=== PATIENT | male | born 1930 | race Caucasian/White ===

== ENCOUNTER 2019-09-22 16:38 | Inpatient (IN) | payer MEDICARE ==
[~2019-09-22] VITALS: Ht 175.3 cm; Wt 84.5 kg
[~2019-09-22 16:38] MED LIST: MULTIPLE VITAMI1 CAP PO
[2019-09-22 18:27] VITALS: BP 138/60; PULSE 67; TEMP 98.1
--- NOTE | 2019-09-22 18:30 | NUR ---
PT IN ROOM, BED IN LOW POSITION, CALL LIGHT AND PHONE WITHIN REACH, BED ALARM ON, FALL SOCKS ON, PT ALERTED TO NEED TO USE CALL LIGHT WHEN NEEDING TO USE THE RESTROOM. WATER AND URINAL BROUGHT IN TO PT. NO OTHER NEEDS AT THIS TIME. INITIAL PERFORMED.
--- NOTE | 2019-09-22 18:52 | NUR ---
RECIEVED REPORT FROM NILESH, NURSE PRACTITIONER AT [facility].
--- NOTE | 2019-09-22 20:00 | NUR ---
Received report from Radha. Seen patient awake in bed. Assesment done. Patient states he only takes multivitamins and no other maintenance medicines. He has some joint pains from his osteoarthritis and describes it as like tingling pain/numb. He refuses to take Tylenol for now as he said he tries to avoid taking too much medicine. INT on left forearm flushed and hooked with NS at 75ml/hr. Patient prefers urinal to be placed in between his legs as he states that he doesn't know when he will urinate.
[2019-09-22 20:16] VITALS: BP 132/50; PULSE 60; TEMP 97.2
[2019-09-22 20:58] LABS: MUCOUS Present /lpf; PH 5 (5-8); SQUAMOUS EPITHELIAL None Seen /hpf; URINE APPEARANCE Clear; URINE BACTERIA None Seen /hpf; URINE BILIRUBIN Negative (NEGATIVE); URINE BLOOD 1+ (NEGATIVE); URINE COLOR Yellow; URINE GLUCOSE Negative (NEGATIVE); URINE KETONE Negative (NEGATIVE); URINE LEUKOCYTE ESTERASE Negative (NEGATIVE); URINE NITRATE Negative (NEGATIVE); URINE PROTEIN(semi-quant) Negative (NEGATIVE); URINE RBC 0-2 /hpf; URINE UROBILINOGEN Negative (NEGATIVE)
--- NOTE | 2019-09-22 22:00 | NUR ---
Repositioned patient and boost him up in bed. Briefs changed and noted to have a trace of bowel movement and an at least 3mm in size of ulcer in his buttocks. Placed back the urinal in between his legs. He states he lives alone and his daughter lives nearby to assist him with meals and medicines.
[2019-09-22 22:46] LABS: COLLECTION METHOD CLEAN CATCH
[2019-09-23] VITALS: BP 140/47; PULSE 67; TEMP 99.3
[2019-09-23] MEDS ORDERED: MOBIC15 MG PO (00:57)
[2019-09-23] MEDS ORDERED: KLOR-CON SPRIN10 MEQ PO (01:03)
[2019-09-23] MEDS ORDERED: ZANAFLEX 4MG TAB4 MG PO (01:04)
[2019-09-23] MEDS ORDERED: DEMADEX 20MG20 M1 PO (01:04)
--- NOTE | 2019-09-23 01:07 | NUR ---
Patient cannot remember the medicines that he's taking. He knows that he takes multivitamins. Med rec updated based on the details in his chart from the other facility.
[2019-09-23 04:00] VITALS: BP 128/48; PULSE 59; TEMP 98.3
--- NOTE | 2019-09-23 06:31 | NUR ---
Patient had uneventful night. With complains of joint pain from his arthritis. Tylenol given last night. He has been urine and bowel incontinent occasionally. He can urinate in the urinal but this morning his briefs are alredy wet despite of using the urinal. Briefs changed. Patient repositioned. Will endorse to day shift nurse.
[2019-09-23 06:39] LABS: BASO % 0.1 % (0.0-2.0); EOS % 0.1 % (0-4.0); GRAN # 8.5 (1.4-6.5); GRAN % 78.8 % (42.2-75.2); LYMPH # 1.1 (1.2-3.4); LYMPH % 10.1 % (20.0-51.0); MEAN CELL VOLUME 93 fl (80.0-100.0); MEAN CORPUSCULAR HGB CONC 33 g/dl (33.0-37.0); MEAN PLATELET VOLUME 10.6 fl (7.4-10.4); MONO # 1.1 (0.1-0.6); MONO % 9.8 % (1.7-9.3); PLATELET COUNT 266 K/mm3 (130-400); RED BLOOD COUNT 2.99 M/mm3 (4.20-5.60); REDCELL DISTRIBUTION WIDTH-CV 16.5 % (11.5-14.5)
[2019-09-23 06:40] LABS: HEMATOCRIT 27.8 % (42.0-52.0); HEMOGLOBIN 9.1 g/dl (13.5-18.0); MEAN CORPUSCULAR HEMOGLOBIN 30 pg (27.0-31.0)
[2019-09-23 06:56] LABS: BILIRUBIN,TOTAL 0.7 mg/dL (0.0-1.0); CALCIUM 8.3 mg/dL (8.4-10.2); CREATININE, serum 0.95 (0.66-1.25); POTASSIUM 3.7 mmol/L (3.4-5.0)
[2019-09-23 07:13] VITALS: BP 129/45; PULSE 58; TEMP 98.6
[2019-09-23 07:17] LABS: TSH w REFLEX 2.43 uIU/mL (0.465-4.680)
--- NOTE | 2019-09-23 09:37 | NUR ---
PT IN BED. URINAL EMPTIED 100ML. PT REPORTED SPILLING THE URINAL IN BED. BEDDING CHANGED, GOWN CHANGED, BED BATH PERFORMED, PERICARE PERFORMED, BARRIER CREAM APPLIED, 3MM SORE NOTED ON L CHEEK, OPEN TO AIR. ASSESSMENT PERFORMED, NEW FLUID BAG HUNG, BREAKFAST SET UP FOR PT, FRESH ICE WATER PROVIDED. NO OTHER NEEDS AT THIS TIME. PT REPORTS PAIN WHEN MOVING DUE TO ARTHRITIS BUT NO PAIN AT REST. PT REPOSITIONED TO L SIDE.
--- NOTE | 2019-09-23 10:41 | NUR ---
The patient is a PUI and pending results for COVID. HOLLY attempted to contact the patient's room and personal phone to discuss discharge plan. HOLLY then contacted the other phone number on file for the patient and his daughter, Jessie, answered his home phone. HOLLY completed intake with Jessie. The patient lives alone in [place]. Jessie lives next door to him. Jessie reports that the patient was independent with ADLs prior to hospitalization and that he has a cane and walker. The patient's PCP is Dr. Michael Romeo and he receives his medications at [facility]. The patient does not have advanced directives in EMR, but Jessie reports that the patient does have them completed. She states that her and her sisters: Akanksha Reyes (ph#[phone]) and Amparo Navarrete (ph#[phone]) are the patient's DPOA-HC. HOLLY attempted to contact the [facility] to inquire if they have a copy of the documents on file. HOLLY left them a voicemail. Jessie reports that if the patient able to get around okay, then she would have no concerns with the patient returning back home. The patient is pending COVID results. Will request PT/OT to be orderd. SW to continue to follow.
[2019-09-23 11:11] VITALS: BP 127/44; PULSE 57; TEMP 97.8
--- NOTE | 2019-09-23 15:25 | NUR ---
PT DID NOT WANT TO TAKE ANTIBIOTIC UNTIL POC WAS DISCUSSED WITH DAUGHTER AND THE DAUGHTER APPROVED THE MEDICATION. PT WAS ADAMENT HE WAS NOT REFUSING IT, HE JUST WANTED HER TO KNOW WHY THE MEDICATION WAS BEING ADMINISTERED. I INFORMED DR. NGO THAT THE PT'S DAUGHTER WAS WANTING AN UPDATE ON POC BEFORE GUITAR MAKER HAND.
[2019-09-23 15:35] VITALS: BP 120/50; PULSE 60; TEMP 98.2
--- NOTE | 2019-09-23 17:26 | NUR ---
JESUS MOELLERMEDICAL INTERPRETER, CALLED [facility] AND COVID TESTS RESULTED NEGATIVE.
--- NOTE | 2019-09-23 18:23 | NUR ---
PT TRANSFERRED ROOMS, SETTLED, DINNER IN FRONT, PT BRIEF AND GOWN CHANGED. PT PLEASANT AND HAPPY ABOUT BEING COVID NEGATIVE. PT STOOD UP WITH 2 PEOPLE TO ATTEMPT TO AMBULATE TO BATHROOM TO DEFECATE. PT TOO WEAK TO TAKE MORE THAN 4 STEPS. TRANSFER TO AND FROM WHEELCHAIR TO BED WAS DIFFICULT EVEN WITH A 2 ASSIST. NO OTHER NEEDS AT THIS TIME. DENIES PAIN UNLESS MOVED THEN COMPLAINS OF JOINT PAIN.
[2019-09-23 21:04] VITALS: BP 146/40; PULSE 64; TEMP 98.7
[2019-09-24] VITALS (7 sets, daily range): BP systolic 116–149; BP diastolic 37–61; PULSE 58–89; TEMP 97.7–98.8
--- NOTE | 2019-09-24 02:45 | NUR ---
Patient has been resting in bed this shift. Patient has been able to use urinal, and has had some incontinence this shift. Patient has 3mm stage II on coccyx. Patient has not had complaints of pain or nasuea this shift.
[2019-09-24 07:04] LABS: BASO % 0.1 % (0.0-2.0); EOS % 0.1 % (0-4.0); GRAN # 7.8 (1.4-6.5); GRAN % 77.8 % (42.2-75.2); HEMATOCRIT 27.9 % (42.0-52.0); HEMOGLOBIN 9.1 g/dl (13.5-18.0); LYMPH # 1.1 (1.2-3.4); MEAN CELL VOLUME 93 fl (80.0-100.0); MEAN CORPUSCULAR HEMOGLOBIN 30 pg (27.0-31.0); MEAN CORPUSCULAR HGB CONC 33 g/dl (33.0-37.0); MEAN PLATELET VOLUME 10.6 fl (7.4-10.4); PLATELET COUNT 272 K/mm3 (130-400); REDCELL DISTRIBUTION WIDTH-CV 16.5 % (11.5-14.5)
[2019-09-24 07:14] LABS: CALCIUM 8.1 mg/dL (8.4-10.2); CREATININE, serum 0.83 (0.66-1.25); POTASSIUM 3.4 mmol/L (3.4-5.0)
--- NOTE | 2019-09-24 08:15 | NUR ---
PATIENT WAS RESTING IN BED WITH EYES CLOSED, DID WAKE FOR BREAKFAST TRAY. PATIENT WAS PROVIDED DAMIR CARE AND REPOSITIONED IN BED. MORNING MEDICATIONS ADMINISTERED AND TAKEN WITHOUT DIFFICULTY. CALL LIGHT AND PERSONAL ITEMS ARE WITHIN REACH.
--- NOTE | 2019-09-24 08:30 | NUR ---
Received report from JESUS Cronin. A/Ox4. Denies any pain or discomfort. Pt sitting up in bed eating dinner upon entry. Meds administered as ordered. INT to LFA intact, flushed, dressing CDI. Tele monitor in place, leads checked. Urinal at bedside. Pt incontinent of BB but able to occasionally use urinal. Call light within reach. Needs met at this time.
--- NOTE | 2019-09-24 14:55 | NUR ---
The patient's COVID results from [facility] came back negative. PT/OT are recommending post-acute rehab for the patient. SW met with the patient to discuss their recommendation. The patient reports that he needs to get stronger and would be agreeable to post-acute rehab. He chose [facility]. The patient did not have a second preference and requested that SW contact his daughter, Amparo. HOLLY contacted Amparo and updated her on the above information. Amparo is agreeable to rehab and states that she would prefer [facility] as the second preference. HOLLY contacted and requested the patient's COVID results from [facility]. HOLLY contacted and faxed a referral to both facilities. SW awaiting their screens and the patient's COVID results from [place].
--- NOTE | 2019-09-24 18:17 | NUR ---
PATIENT IS RESTING IN BED, JUST FINISHED SUPPER. DID ASSIST WITH URINAL PER HIS REQUST. SPOKE WITH DAUGHTER REGARDING POSSIBLE PLACEMENT FOR PATIENT. SHE REQUESTS THAT DPOA PAPERWORK BE SENT WITH PATIENT UPON DISCHARGE. NOTIFIED BARBER INSTRUCTOR AND NOTE WAS LEFT ON CHART.
[2019-09-25 03:18] VITALS: BP 129/60; PULSE 89; TEMP 97.8
--- NOTE | 2019-09-25 03:32 | NUR ---
Pt requesting pain medication for bilateral knee joint pain, prn tylenol 650mg administered as requested. Made pt comfortable in bed. Call light within reach.
--- NOTE | 2019-09-25 06:34 | NUR ---
Needs attended too throughout the night. PRN tylenol given for c/o bilateral knee joint pain. made pt comfortable in bed. meds administered. call light within reach.
--- NOTE | 2019-09-25 06:41 | NUR ---
Report given to JESUS Cronin.
[2019-09-25 07:24] VITALS: BP 130/50; PULSE 58; TEMP 97.8
[2019-09-25 11:08] VITALS: BP 144/53; PULSE 63; TEMP 97.2
--- NOTE | 2019-09-25 11:10 | NUR ---
PATIENT IS RESTING IN BED, WAS ASSISTED WITH TAKING MEDICATION AT BREAKFAST HE HAD TROUBLE GETTING THE MED CUP TO HIS MOUTH. HE STATES HE HAS SLIGHT PAIN IN HIS BACK WHILE HE IS STILL. HE DID HELP WITH REPOSITIONING IN BED.
[2019-09-25 16:01] VITALS: BP 131/53; PULSE 76; TEMP 98.4
--- NOTE | 2019-09-25 17:14 | NUR ---
HOLLY contacted and faxed updates to [facility] and [facility]. Both facilities report that they would need to get authorization from the patient's insurance. Kiesha, at [facility], reports that she has not heard from insurance yet. HOLLY received he patient's General DPOA. HOLLY contacted the patient's daughter, Amparo, to inform that is does not include DPOA-HC. Amparo reports that she would like to get a DPOA-HC completed for the patient while here. HOLLY then met with the patient and his daughter, Amparo, and granddaughter, Zulema, were on speaker phone. HOLLY discussed DPOA-HC. The patient reports that he would be interested in completing one and designated his daughter, Amparo, and Zulema as the alternate. HOLLY and Jacqueline BARRERA, witnessed the patient's signature. The patient was provided with the original and some copies. HOLLY placed the General DPOA and DPOA-HC in the patient's chart. HOLLY also emailed a copy of the DPOA-HC to Alyssa. HOLLY to continue to follow.
--- NOTE | 2019-09-25 18:23 | NUR ---
PATIENT IS SITTING UP IN BED EATING EVENING MEAL. NO NEEDS VERBALIZED
[2019-09-25 19:37] VITALS: BP 124/67; PULSE 78; TEMP 100.1
--- NOTE | 2019-09-25 20:48 | NUR ---
Received report from JESUS Cronin. A/Ox4. Denies any pain at this time. Meds administered as ordered. T100.2, prn tylenol adminsitered. Will monitor pt. Tele monitor in place. Cough drop given as requested by pt. INT to LFA intact, flushed, dressing CDI. Needs met. Call light within reach.
[2019-09-25 22:55] VITALS: BP 117/64; PULSE 64; TEMP 98
[2019-09-26 03:36] VITALS: BP 132/45; PULSE 58; TEMP 98.1
[2019-09-26 07:05] LABS: BASO % 0.1 % (0.0-2.0); EOS % 0.3 % (0-4.0); GRAN # 11.7 (1.4-6.5); GRAN % 82.3 % (42.2-75.2); LYMPH # 1.1 (1.2-3.4); LYMPH % 7.5 % (20.0-51.0); MEAN CELL VOLUME 93 fl (80.0-100.0); MEAN CORPUSCULAR HGB CONC 32 g/dl (33.0-37.0); MEAN PLATELET VOLUME 9.8 fl (7.4-10.4); MONO # 1.2 (0.1-0.6); MONO % 8.5 % (1.7-9.3); PLATELET COUNT 312 K/mm3 (130-400); RED BLOOD COUNT 3.29 M/mm3 (4.20-5.60); REDCELL DISTRIBUTION WIDTH-CV 16.6 % (11.5-14.5)
[2019-09-26 07:06] LABS: HEMATOCRIT 30.5 % (42.0-52.0); HEMOGLOBIN 9.8 g/dl (13.5-18.0); MEAN CORPUSCULAR HEMOGLOBIN 30 pg (27.0-31.0)
--- NOTE | 2019-09-26 07:10 | NUR ---
Report given to JESUS Saldana.
[2019-09-26 07:14] LABS: CALCIUM 8.5 mg/dL (8.4-10.2); CREATININE, serum 0.81 (0.66-1.25); POTASSIUM 3.6 mmol/L (3.4-5.0)
[2019-09-26 07:17] VITALS: BP 119/46; PULSE 66; TEMP 97.8
--- NOTE | 2019-09-26 10:32 | NUR ---
Susana, at [facility], reports that the patient's insurance is not in network with them. HOLLY contacted and updated Jesenia at [facility]. Jesenia reports that they are in network with the patient's insurance and will submit for auth today. HOLLY contacted and updated the patient's daughter, Amparo. Amparo is agreeable with the patient going to [facility]. SW awaiting auth and will continue to follow.
[2019-09-26 11:32] VITALS: BP 115/46; PULSE 63; TEMP 98.4
--- NOTE | 2019-09-26 12:01 | NUR ---
Patient is alert and oriented. complained of generalized pain and weakness of 4/10. gave tylenol for pain. patient mentioned he has dry cough, uses cough drop to relieve cough. patient have conjunctivitis on both eyes. LYNN Chong ordered for chest xray for SOA complain, increase wbc to 14.2 from 10.0.
[2019-09-26 18:02] VITALS: BP 109/48; PULSE 58; TEMP 98.3
--- NOTE | 2019-09-26 19:20 | NUR ---
Patient report poor appetite. Administered zofran once for nausea. report given to JESUS Forman.
[2019-09-26 19:22] VITALS: BP 127/50; PULSE 57; TEMP 98.4
--- NOTE | 2019-09-26 20:30 | NUR ---
Initial shift assessment done- did eat a few bites of supper tonight,,denies pain, states has a few aches in his joints but is ok for now- was incontinent of urine- will try to collect a urine specimen in urinal the next time- pt aware and will try to call when needs to go,, Tele on,
[2019-09-27] VITALS (7 sets, daily range): BP systolic 106–129; BP diastolic 43–55; PULSE 56–89; TEMP 97.9–100
--- NOTE | 2019-09-27 05:09 | NUR ---
Has been sleeping well tonight -especially when on his right side,, VSS, has been voiding small amounts per urinal and also incontinent, did have a temp of 100.0 during the night.
[2019-09-27 06:03] LABS: COLLECTION METHOD CLEAN CATCH
[2019-09-27 06:15] LABS: MUCOUS Present /lpf; PH 5 (5-8); SQUAMOUS EPITHELIAL 0-2 /hpf; URINE APPEARANCE Clear; URINE BACTERIA None Seen /hpf; URINE BILIRUBIN Negative (NEGATIVE); URINE BLOOD Negative (NEGATIVE); URINE COLOR Yellow; URINE GLUCOSE Negative (NEGATIVE); URINE KETONE Negative (NEGATIVE); URINE LEUKOCYTE ESTERASE Negative (NEGATIVE); URINE NITRATE Negative (NEGATIVE); URINE PROTEIN(semi-quant) Negative (NEGATIVE); URINE RBC 0-2 /hpf; URINE UROBILINOGEN Negative (NEGATIVE)
[2019-09-27 06:54] LABS: MEAN CELL VOLUME 94 fl (80.0-100.0); MEAN CORPUSCULAR HGB CONC 32 g/dl (33.0-37.0); MEAN PLATELET VOLUME 10.2 fl (7.4-10.4); PLATELET COUNT 335 K/mm3 (130-400); RED BLOOD COUNT 3.17 M/mm3 (4.20-5.60); REDCELL DISTRIBUTION WIDTH-CV 16.6 % (11.5-14.5)
[2019-09-27 07:15] LABS: HEMATOCRIT 29.7 % (42.0-52.0); HEMOGLOBIN 9.5 g/dl (13.5-18.0); MEAN CORPUSCULAR HEMOGLOBIN 30 pg (27.0-31.0)
[2019-09-27 07:17] LABS: CALCIUM 8.1 mg/dL (8.4-10.2); CREATININE, serum 0.95 (0.66-1.25); POTASSIUM 3.9 mmol/L (3.4-5.0)
--- NOTE | 2019-09-27 08:30 | NUR ---
Patient is alert and oriented. mentioned that the pain has reduced in comparison to yesterday. O2 sat at 89% on RA. Currently on 1L of O2 with O2 saturation of 95%. educate on deep breathing. patient is resting in bed right now.
[2019-09-27 10:38] LABS: BAND 6 % (0-10); EOSINOPHIL 1 % (0-4); LYMPHOCYTE 9 % (20.0-51.0); NEUTROPHILS 76 % (42.0-75.2)
[2019-09-27 10:39] LABS: PLATELET ESTIMATE NORMAL (NORMAL)
--- NOTE | 2019-09-27 20:30 | NUR ---
Initial shift assessment done- states having just some overall aches--will give tylenol before bed, VSS, Tele on, pleasant, talkative, oriented x4-- did use urinal with some assistnace-voided 200cc alvin urine- also small incontinence. o2 at 1L/nc.
[2019-09-28 04:00] VITALS: BP 118/38; PULSE 62; TEMP 98.1
--- NOTE | 2019-09-28 06:00 | NUR ---
Did not get much sleep during the night, pt did use the urinal numerous times during the night with assistance-- also was incontinent of small amount soft stool x2-
[2019-09-28 07:30] VITALS: BP 125/42; PULSE 59; TEMP 98.6
[2019-09-28 07:36] LABS: MEAN CELL VOLUME 95 fl (80.0-100.0); MEAN CORPUSCULAR HGB CONC 32 g/dl (33.0-37.0); MEAN PLATELET VOLUME 10.3 fl (7.4-10.4); PLATELET COUNT 329 K/mm3 (130-400); RED BLOOD COUNT 3.11 M/mm3 (4.20-5.60); REDCELL DISTRIBUTION WIDTH-CV 16.8 % (11.5-14.5)
[2019-09-28 07:42] LABS: CALCIUM 8.1 mg/dL (8.4-10.2); CREATININE, serum 0.84 (0.66-1.25); POTASSIUM 3.7 mmol/L (3.4-5.0)
[2019-09-28 07:48] LABS: HEMATOCRIT 29.6 % (42.0-52.0); HEMOGLOBIN 9.5 g/dl (13.5-18.0); MEAN CORPUSCULAR HEMOGLOBIN 31 pg (27.0-31.0)
[2019-09-28 09:21] LABS: BAND 12 % (0-10); LYMPHOCYTE 4 % (20.0-51.0); METAMYELOCYTE 1 % (0-0); NEUTROPHILS 78 % (42.0-75.2)
[2019-09-28 09:22] LABS: ANISOCYTOSIS 1+; PLATELET ESTIMATE NORMAL (NORMAL)
[2019-09-28 09:23] LABS: HYPOCHROMIA 2+
[2019-09-28 11:38] VITALS: BP 125/61; PULSE 72; TEMP 98.8
[2019-09-28 16:09] VITALS: BP 123/45; PULSE 65; TEMP 98.1
--- NOTE | 2019-09-28 18:25 | NUR ---
PATIENT REPOSITIONED IN BED FOR SUPPER, SET UP PROVIDED.
[2019-09-28 19:19] VITALS: BP 117/50; PULSE 93; TEMP 98.4
--- NOTE | 2019-09-28 20:17 | NUR ---
Pt resting in bed at this time watching television. Pt assessment completed and documented. Pt alert and orieted to person and place. Pt unable to state current month, however was able to state correct year. INT to left wrist CDI. Pt states he is having 3/10 generalized pain but states he does not want any pain medication at this time and is refusing to be repositioned. Pt refusing to eat dinner stating that he is not hungry. Pt denies any other needs at this time. Call light within reach. Fall precautions in place. Bed alarm on. Will continue to monitor.
[2019-09-28 23:20] VITALS: BP 124/70; PULSE 71; TEMP 99
--- NOTE | 2019-09-29 02:17 | NUR ---
Pt resting in bed awake at this time. States he has not been able to sleep much. Repositioned pt in bed. Pt denies any needs. Fall precautions in place. Bed alarm on. Will continue to monitor.
[2019-09-29 03:18] VITALS: BP 123/43; PULSE 70; TEMP 100.9
[2019-09-29 05:11] LABS: CLOSTRIDIUM DIFF A/B NEG; CLOSTRIDIUM DIFF A/B INTERP No C.diff present
--- NOTE | 2019-09-29 06:41 | NUR ---
Pt awake most of the night. Temp max 100.9. PRN tylenol given per orders. Pt incontinent of two liquid bowel movements overnight. INT to right wrist CDI. Complaints of generalized aching pain overnight that pt stated he did not want any pain medication for. Pt denies any other needs. Fall precautions in place. Bed alarm on. Call light within reach.
[2019-09-29 06:50] LABS: CREATININE, serum 0.93 (0.66-1.25); POTASSIUM 3.5 mmol/L (3.4-5.0)
[2019-09-29 07:11] LABS: MEAN CELL VOLUME 93 fl (80.0-100.0); MEAN CORPUSCULAR HGB CONC 32 g/dl (33.0-37.0); MEAN PLATELET VOLUME 10.2 fl (7.4-10.4); PLATELET COUNT 368 K/mm3 (130-400); RED BLOOD COUNT 3.19 M/mm3 (4.20-5.60); REDCELL DISTRIBUTION WIDTH-CV 16.8 % (11.5-14.5)
[2019-09-29 07:17] LABS: HEMATOCRIT 29.8 % (42.0-52.0); HEMOGLOBIN 9.6 g/dl (13.5-18.0); MEAN CORPUSCULAR HEMOGLOBIN 30 pg (27.0-31.0)
[2019-09-29 07:22] VITALS: BP 115/44; PULSE 57; TEMP 97.9
--- NOTE | 2019-09-29 07:27 | NUR ---
Report given to JESUS Albert
[2019-09-29 10:14] LABS: BAND 4 % (0-10); LYMPHOCYTE 8 % (20.0-51.0); NEUTROPHILS 78 % (42.0-75.2)
[2019-09-29 12:03] VITALS: BP 129/47; PULSE 62; TEMP 98.2
--- NOTE | 2019-09-29 14:09 | NUR ---
Refractory Specialist faxed updates to Susana with [facility] and to Jesenia with [facility]. SW contacted Susana and she reports that the patient's insurance had them back out their authorization due to the patient's condition and him not ready for post acute rehab.
[2019-09-29 15:40] VITALS: BP 131/50; PULSE 63; TEMP 97.9
--- NOTE | 2019-09-29 17:46 | NUR ---
Pt assessment completed and charted. medications administered per MAY. Pt is A&O. Pt states he has general pain all over, feeling weak and "going down hill since he got here". Pt on 3l NC. Denies SOB, breathing is even and unlabored. LWR INT flushes w/o complications. Pt started on zosyn, no issues. Incontinent care provided, bottom red, small ulcer, unopened, barrier cream applied. Pt had minimal participation in therapies today d/t weakness. Pt sleeping off and on throughout day, no further needs expressed. Call light within reach.
[2019-09-29 19:03] VITALS: BP 104/55; PULSE 72; TEMP 99.7
[2019-09-29 19:48] VITALS: BP 158/78; PULSE 64; TEMP 97.4
--- NOTE | 2019-09-29 20:30 | NUR ---
Pt assessment completed and documented. Pt resting in bed at this time watching television. Pt alert and oriented x4. Complaints of generalized pain "from his arthritis". Will give PRN tylenol per pt request. IV zosyn infusing per orders to left forearm IV site without complications. Pt on 3L O2 via nasal cannula. Pt denies any other needs at this time. Fall precautions in place. Bed alarm on. Call light within reach. Will continue to monitor.
[2019-09-30 00:37] VITALS: BP 111/54; PULSE 62; TEMP 98.3
[2019-09-30 03:51] VITALS: BP 105/63; PULSE 62; TEMP 98.9
--- NOTE | 2019-09-30 06:00 | NUR ---
Pt had uneventful shift. Pt awake on and off throughout the night. Complaints of generalized pain at the beginning of the night. PRN tylneol given per orders. INT to right wrist CDI. Pt denies any other needs. Bed alarm on. Call light within reach. Bed alarm on.
[2019-09-30 07:00] LABS: MEAN CELL VOLUME 94 fl (80.0-100.0); MEAN CORPUSCULAR HGB CONC 31 g/dl (33.0-37.0); MEAN PLATELET VOLUME 10.3 fl (7.4-10.4); PLATELET COUNT 337 K/mm3 (130-400); RED BLOOD COUNT 3.09 M/mm3 (4.20-5.60)
[2019-09-30 07:03] LABS: HEMOGLOBIN 9.1 g/dl (13.5-18.0); MEAN CORPUSCULAR HEMOGLOBIN 29 pg (27.0-31.0)
--- NOTE | 2019-09-30 07:13 | NUR ---
Report given to JESUS Bowens
[2019-09-30 07:23] LABS: CREATININE, serum 0.95 (0.66-1.25); POTASSIUM 3.8 mmol/L (3.4-5.0)
[2019-09-30 07:24] LABS: BAND 19 % (0-10); LYMPHOCYTE 7 % (20.0-51.0); METAMYELOCYTE 2 % (0-0); NEUTROPHILS 70 % (42.0-75.2); PLATELET ESTIMATE NORMAL (NORMAL)
[2019-09-30 07:36] VITALS: BP 120/61; PULSE 84; TEMP 98.4
--- NOTE | 2019-09-30 09:42 | NUR ---
Money Position Officer faxed updates to [facility] and [facility]. Will continue to monitor.
--- NOTE | 2019-09-30 10:52 | NUR ---
Retail Associate contacted the patient's daughter, Amparo ([phone]) to revisit the discharge plan. She would like a referrals to be sent to [facility]. HOLLY to fax referrals. HOLLY contacted Acosta about being in-network with [facility]. She states she would have to check the insurance. HOLLY contacted [facility] and he states they are in-network. HOLLY contacted Susana with [facility] and they are still working with [facility]. The patient may have to pay out of pocket since they are not in-network. HOLLY informed the patient's daughter of paying out of pocket information. She states the patient does not have a lot of extra money. She states she would prefer the patient stay in [place] or go to [facility] for post acute rehab. But was open to continue sending updates to [facility]. Will continue to monitor.
[2019-09-30 12:32] VITALS: BP 115/56; PULSE 87; TEMP 98.6
--- NOTE | 2019-09-30 16:23 | NUR ---
Acosta from [facility] contacted HOLLY. She states that the patient will have a 50% co-pay and that would be about $300-$400 per day, includes therapy. HOLLY contacted Amparo with an update and she would like to withdraw the referral from [facility]. HOLLY informed [facility]. HOLLY contacted Jatinder with [facility]. They can accept the patient clinically. However, they are awaiting [employer] authorization and there has to be a bed available. There has to be another Covid-19 test. HOLLY informed PA. Will continue to follow.
[2019-09-30 16:43] VITALS: BP 122/48; PULSE 93; TEMP 98.6
--- NOTE | 2019-09-30 19:00 | NUR ---
Pt assessment completed and charted. medications administered per may. Pt is A&O, occasionally drowsy, feeling "very weak". Denies pain unless he's moving around or during repostioning. Pt has RFA/RWR area INT IV, flushes w/o difficulty. Pt has edema noted to forearms. BLE 1+ edema. pt has difficulty rolling from side to side on own or sitting up. Attempted to stand w/ PT today 3 times, very difficult, 2 assist w/ gait belt and walker. Episodes of incontinence, linen change completed. RVP and GI panel came back negative. Pt off precautions. Pt on 3L NC. SOB noted with repositioning. Pt requested cough drops, provided PRN. pt refused afternoon eye drops. No other concerns expressed. Daughter Alyssa called, upset that she had not spoken with anyone or received updates. LYNN Chong aware and HOLLY aware, daughter contacted for updates and discharge discussion. No further needs.
[2019-09-30 19:50] VITALS: BP 113/46; PULSE 69; TEMP 99
--- NOTE | 2019-09-30 20:00 | NUR ---
Patient is awake in bed; He has been incontinent of urine in his brief and is cleaned up at this time. His bottom is reddened but blanchable; barrier cream applied. Patient is alert and oriented and complains of generalized pain, especially in joints, with movement. Hand brine plant operator are equal but weak. Heart sounds are normal/regular and lung sounds are clear over diminished. Right forearm IV is d/c'd at this time, as right arm appears puffy and no blood return is observed. Bilateral upper extremities appear edematous, the right side more so. Patient's right eye is slightly droopy and reddened. Verbal consent for bedside cystoscopy is obtained from patient and patient's daughter at this time.
[2019-10-01] VITALS (7 sets, daily range): BP systolic 110–123; BP diastolic 39–51; PULSE 64–81; TEMP 98–100.8
--- NOTE | 2019-10-01 06:07 | NUR ---
Patient has had adequate urine output over night. He has soaked his brief twice and urinated 150 ml in the urinal. A bladder scan was performed immediately after patient voided and states >450 ml remains in the bladder. He has ran some low grade fevers throughout the night with a TMAX of 100.8. He is currently afebrile.
[2019-10-01 07:35] LABS: MEAN CELL VOLUME 94 fl (80.0-100.0); MEAN CORPUSCULAR HGB CONC 32 g/dl (33.0-37.0); MEAN PLATELET VOLUME 9.9 fl (7.4-10.4); PLATELET COUNT 344 K/mm3 (130-400); RED BLOOD COUNT 2.75 M/mm3 (4.20-5.60)
[2019-10-01 07:57] LABS: ALBUMIN 2.6 gm/dL (3.5-5.0); BILIRUBIN,TOTAL 0.6 mg/dL (0.0-1.0); CALCIUM 7.8 mg/dL (8.4-10.2); CREATININE, serum 0.96 (0.66-1.25); MAGNESIUM 2.2 mg/dL (1.6-2.3); POTASSIUM 3.7 mmol/L (3.4-5.0); TOTAL PROTEIN 6.4 gm/dL (6.4-8.2)
[2019-10-01 08:07] LABS: HEMATOCRIT 25.8 % (42.0-52.0); HEMOGLOBIN 8.2 g/dl (13.5-18.0); MEAN CORPUSCULAR HEMOGLOBIN 30 pg (27.0-31.0)
[2019-10-01 09:02] LABS: BAND 12 % (0-10); EOSINOPHIL 2 % (0-4); LYMPHOCYTE 6 % (20.0-51.0); METAMYELOCYTE 2 % (0-0); NEUTROPHILS 74 % (42.0-75.2); PLATELET ESTIMATE NORMAL (NORMAL)
--- NOTE | 2019-10-01 09:12 | NUR ---
Spinneret Person attended clinical rounds with the team. Neurology was consulted. A CT of the abdomen/pelvis ordered. SW to fax updates to [facility], [facility] and [facility]. Will continue to monitor.
--- NOTE | 2019-10-01 13:28 | NUR ---
Pipe Joints Supervisor contacted Susana with [facility] regarding placement and they cannot take the patient. SW contacted Jesenia with [facility] and she states they can tentatively take the patient as long as the patient is stable to discharge. HOLLY contacted Jatinder with [facility] reports they can revisit the patient acceptance for next week if a discharge date is set by Sunday. Right now they do not have male beds. SW contacted the patient's daughter, Amparo to provide an update. Will continue to monitor.
--- NOTE | 2019-10-01 19:05 | NUR ---
PATIENT NOTFIED STAFF HE HAD TO USE THE RESTROOM, WAS ASSISTED WITH URINAL. CALL LIGHT IS WITHIN REACH. REPORT GIVEN TO ONCOMING SHIFT.
--- NOTE | 2019-10-01 21:15 | NUR ---
Pt assessment completed and documented. Pt resting in bed at this time watching television. Pt alert and oriented x4. Complaints of generalized pain however states he does not want anything for pain at this time. INT to right wrist CDI. Pt denies any other needs at this time. Fall precautions in place. Bed alarm on. Call light within reach. Will continue to monitor.
[2019-10-02] VITALS (15 sets, daily range): BP systolic 104–127; BP diastolic 39–55; PULSE 62–72; TEMP 97.7–99.3
--- NOTE | 2019-10-02 00:51 | NUR ---
Pt reported poor appetite earlier in the night but requested something to eat around 0000. Pt given ice cream, 1/2 cookie and applesauce per request and threw up immediately after eating. PRN zofran given per orders. Pt not experiencing any vomiting at this time and states nausea has almost resolved. Will continue to monitor.
--- NOTE | 2019-10-02 05:42 | NUR ---
Pt rested intermittently throughout the night. Pt attempted to eat a snack around midnight and threw up everything that he ate right after eating. PRN zofran given x1 per orders. No complaints of nausea at this time. Pt had small amount of liquid bm overnight that was clear in color with a small amount of brown that appeared mucousy-large amount of gas at time of BM. Complaints of generalized pain overnight. PRN tylenol given x1 per orders. INT to left wrist CDI. Telemetry on. Call light within reach. Bed alarm on. Will continue to monitor.
--- NOTE | 2019-10-02 07:38 | NUR ---
RADIOLOGY CALLED REGARDING BIOPSY ORDER @ 0701. SPOKE TO DR CHAMBERLAIN. RECOMMENDED TO HAVE DOC PUT IN BIOPSY ORDER DIRECTLY. DR WALKER'S OFFICE CLOSED UNITL 0900. WILL ATTEMPT TO CALL AT LATER TIME.
--- NOTE | 2019-10-02 11:25 | NUR ---
PT AOX4. REPORTS WEAKNESS, UNABLE TO LIFT ELBOWS OFF BED. ATE BREAKFAST THIS AM. CURRENTLY DENIES NAUSEA. REPORTS SARABJIT KNEE PAIN. TYLENOL OFFERED. VANCO RUNNING AFTER LATE TROUGH
--- NOTE | 2019-10-02 11:28 | NUR ---
Marquetry Worker attended clinical rounds with the team. A PICC line may be place this day. SW to fax updates to [facility] and [facility]. Will continue to follow.
[2019-10-02 17:03] LABS: MEAN CELL VOLUME 96 fl (80.0-100.0); MEAN CORPUSCULAR HGB CONC 32 g/dl (33.0-37.0); PLATELET COUNT 397 K/mm3 (130-400); RED BLOOD COUNT 2.06 M/mm3 (4.20-5.60); REDCELL DISTRIBUTION WIDTH-CV 16.9 % (11.5-14.5)
[2019-10-02 17:05] LABS: HEMATOCRIT 19.7 % (42.0-52.0); MEAN CORPUSCULAR HEMOGLOBIN 30 pg (27.0-31.0)
[2019-10-02 17:06] LABS: HEMOGLOBIN 6.2 g/dl (13.5-18.0)
[2019-10-02 17:12] LABS: CALCIUM 7.9 mg/dL (8.4-10.2); CREATININE, serum 1.04 (0.66-1.25); MAGNESIUM 2.4 mg/dL (1.6-2.3); POTASSIUM 3.1 mmol/L (3.4-5.0)
[2019-10-02 18:01] LABS: BAND 13 % (0-10); LYMPHOCYTE 4 % (20.0-51.0); NEUTROPHILS 78 % (42.0-75.2)
[2019-10-02 18:02] LABS: ANISOCYTOSIS 1+; HYPOCHROMIA 1+
[2019-10-02 18:03] LABS: PLATELET ESTIMATE NORMAL (NORMAL)
--- NOTE | 2019-10-02 19:55 | NUR ---
1 unit PRBC started at this time. Patient educated on adverse side effects. This RN remains in room with patient for 15 minutes, monitoring vital signs. Will continue to monitor.
--- NOTE | 2019-10-02 20:00 | NUR ---
At time of assessment, patient is alert and oriented and appears weak. Hand die cast technician are equal but weak. Heart sounds are normal/regular and lungs are clear with diminished bases. Dependent edema that is nonpitting is present in lower extremities and arms appear slightly edematous as well. Patient complains of mild pain and requests to take tylenol later. Right eye is slightly redened and droopy. Will continue to monitor.
--- NOTE | 2019-10-02 22:45 | NUR ---
Blood transfusion finished at this time. Patient tolerated well. Will continue to monitor.
[2019-10-03] VITALS (7 sets, daily range): BP systolic 107–126; BP diastolic 39–59; PULSE 53–85; TEMP 97.5–100.1
--- NOTE | 2019-10-03 05:31 | NUR ---
Patient has been febrile tonight with a TMAX of 100.8 axillary. He remains on 02 at 2-3 liters nasal cannula and is still very weak.
[2019-10-03 07:50] LABS: MEAN CELL VOLUME 94 fl (80.0-100.0); MEAN CORPUSCULAR HGB CONC 31 g/dl (33.0-37.0); MEAN PLATELET VOLUME 10.1 fl (7.4-10.4); PLATELET COUNT 315 K/mm3 (130-400); RED BLOOD COUNT 3.18 M/mm3 (4.20-5.60); REDCELL DISTRIBUTION WIDTH-CV 17.2 % (11.5-14.5)
[2019-10-03 07:59] LABS: CALCIUM 7.9 mg/dL (8.4-10.2); CREATININE, serum 1.07 (0.66-1.25); HEMATOCRIT 29.8 % (42.0-52.0); MEAN CORPUSCULAR HEMOGLOBIN 29 pg (27.0-31.0); POTASSIUM 3.3 mmol/L (3.4-5.0)
[2019-10-03 08:01] LABS: HEMOGLOBIN 9.3 g/dl (13.5-18.0)
[2019-10-03 09:03] LABS: BAND 16 % (0-10); EOSINOPHIL 1 % (0-4); NEUTROPHILS 60 % (42.0-75.2)
[2019-10-03 09:04] LABS: LYMPHOCYTE 13 % (20.0-51.0)
[2019-10-03 09:05] LABS: ANISOCYTOSIS 1+; HYPOCHROMIA 1+; PLATELET ESTIMATE NORMAL (NORMAL)
[2019-10-03 10:21] LABS: ERYTHROCYTE SEDIMENTATION RATE > 140 mm/hr (0-30)
--- NOTE | 2019-10-03 11:51 | NUR ---
Assessment completed, alert/oriented, vital signs stable, reports generlaized/ back aches and pains, gave 1 mg Morphine prior to MRI of T-spine/C-spine and brain this morning, had low grade fever overnight and WBC is >22 this morning, lungs CTA/ no resp.difficulty, heart RRR/distal pulses are palpable, SR on tele, trace-1+ edema to BLE, PT has gotten him up to the chair and he is starting to eat some food, denies other needs at this time
--- NOTE | 2019-10-03 13:05 | NUR ---
physical therapy in and assisted him back to bed, bedside shift report received from JSEUS Muniz
--- NOTE | 2019-10-03 14:00 | NUR ---
resting in bed, assisted him with positing
--- NOTE | 2019-10-03 15:33 | NUR ---
appears to be dozing, awakens easily for meds
[2019-10-03 18:19] LABS: EBV NUCLEAR ANTIGEN IGG Positive (())
[2019-10-03 18:20] LABS: EBV EARLY ANTIGEN IGG Equivocal (())
[2019-10-03 18:33] LABS: PROCALCITONIN 0.31 ng/mL (0.00-0.09)
[2019-10-03 18:40] LABS: C-ANCA 8 U/mL (0-99)
--- NOTE | 2019-10-03 18:58 | NUR ---
bedside shift report given to JESUS Rice
[2019-10-03 19:10] LABS: COMPLEMENT-C3 106 mg/dL (82-185)
[2019-10-03 19:11] LABS: COMPLEMENT-C4 13 mg/dL (15-53)
[2019-10-03 22:59] LABS: EBV IGM AB Negative (())
--- NOTE | 2019-10-04 02:58 | NUR ---
Pt assessment completed, charted, alert, oriented, NC on 2 lit. Meds provided as per MAY, tolerated well. I/V line flushed without complications. Helped settled on bed, call light on reach. Position changed every two hours. No further needs at this time.
[2019-10-04 04:00] VITALS: BP 120/54; PULSE 71; TEMP 98.3
--- NOTE | 2019-10-04 07:17 | NUR ---
Pt had an uneventful night, slept through out the night. Position changed every 2 hrs. Morning meds provided as per MAY, tolerated well. Handover provided to JESUS Argueta.
[2019-10-04 07:47] VITALS: BP 114/43; PULSE 68; TEMP 98
--- NOTE | 2019-10-04 07:55 | NUR ---
PT AOX4. DENIES PAIN UNLESS MOVED IN BEE THEN MILD GENERALIZED PAIN. TITRATED DOWN TO 1LNC WITH O2 SAT 93%. NO SOB. SARABJIT UPPER ARMS PUFFY WITHOUT PITTING EDEMA. SMALL MUCUOSY LOOSE BM THIS AM. CONTINENT AND VOIDED 200CC IN URINAL. VS CHARTED. STATES WEAKNESS BUT DENIES OTHER CONCERNS. ABLE TO LIFT ELBOWS OFF BED FOR SHORT PEIRODS OF TIME. PICC TO LUE INTACT
[2019-10-04 08:28] LABS: RED BLOOD COUNT 3.15 M/mm3 (4.20-5.60)
[2019-10-04 08:29] LABS: MEAN CELL VOLUME 95 fl (80.0-100.0); MEAN CORPUSCULAR HGB CONC 31 g/dl (33.0-37.0); PLATELET COUNT 320 K/mm3 (130-400); REDCELL DISTRIBUTION WIDTH-CV 17.2 % (11.5-14.5)
[2019-10-04 08:30] LABS: HEMOGLOBIN 9.4 g/dl (13.5-18.0); MEAN CORPUSCULAR HEMOGLOBIN 30 pg (27.0-31.0)
[2019-10-04 08:43] LABS: CALCIUM 7.5 mg/dL (8.4-10.2); CREATININE, serum 0.98 (0.66-1.25); POTASSIUM 3.4 mmol/L (3.4-5.0)
[2019-10-04 10:26] LABS: ANISOCYTOSIS 2+; BAND 2 % (0-10); LYMPHOCYTE 18 % (20.0-51.0); NEUTROPHILS 75 % (42.0-75.2); PLATELET ESTIMATE NORMAL (NORMAL)
[2019-10-04 11:59] VITALS: BP 117/59; PULSE 82; TEMP 97.9
--- NOTE | 2019-10-04 12:54 | NUR ---
Vancomycin Initial Dosing Pharmacy Note Ordering provider: Cedric Snow MD Indication/duration: Meningitis LABS: eCrCl ~ 55 mL/min Recommendation: Loading dose: 1.5 grams on 10/04/19 @ 14:00 Maintenance dose: 750 mg every 12 hours Trough goal: 15-20 ug/mL with first level 10/06/19 @ 13:30. Will continue to follow.
--- NOTE | 2019-10-04 15:06 | NUR ---
THIS NURSE ASSISTED PT WITH LUNCH, PT HAVING DIFFICULT TIME CHEWING DESPITE DENTURES AND POLYDENT PRESENT. DISCUSSED CHANGING DIET TO MECH SOFT. PT AGREEABLE. HE TIRES EASILY WITH MEALS DUE TO DIFFICULTY AND LENGTH OF CHEWING TIME. INCONTINENT OF BOWEL WITH FREQUENT SMALL CLEAR TO BROWN LOOSE MUCOUS STOOLS. CONTINE TOF URINE WITH CLEAR YVROSE URINE. TURNED Q2HR. SCROTUM MILDLY EXCORIATED. HEELS ALAVATED.
[2019-10-04 16:36] VITALS: BP 111/42; PULSE 62; TEMP 98.2
[2019-10-04 19:27] VITALS: BP 144/50; PULSE 72; TEMP 98.9
--- NOTE | 2019-10-04 20:00 | NUR ---
Report received, assumed care for senior gis analyst. Assessment complete. VS stable. Denies pain/shortness of breath/nausea. VS stable. Plan of care discussed for antibiotics this shift. Verbalizes understanding. Noted to have bilat upper extremity edema +2. Denies questions/concerns. Call light in reach. Will monitor.
[2019-10-05] VITALS (7 sets, daily range): BP systolic 115–138; BP diastolic 43–54; PULSE 61–77; TEMP 97.4–100.3
[2019-10-05 06:29] LABS: MEAN CELL VOLUME 94 fl (80.0-100.0); MEAN CORPUSCULAR HGB CONC 32 g/dl (33.0-37.0); PLATELET COUNT 321 K/mm3 (130-400); REDCELL DISTRIBUTION WIDTH-CV 16.9 % (11.5-14.5)
[2019-10-05 06:43] LABS: HEMATOCRIT 29.1 % (42.0-52.0); HEMOGLOBIN 9.3 g/dl (13.5-18.0); MEAN CORPUSCULAR HEMOGLOBIN 30 pg (27.0-31.0)
[2019-10-05 06:44] LABS: CALCIUM 7.8 mg/dL (8.4-10.2); CREATININE, serum 0.95 (0.66-1.25); PHOSPHOROUS 2.3 mg/dL (2.5-4.5); POTASSIUM 3.4 mmol/L (3.4-5.0)
[2019-10-05 08:34] LABS: ANISOCYTOSIS 1+; BAND 11 % (0-10); HYPOCHROMIA 1+; LYMPHOCYTE 6 % (20.0-51.0); METAMYELOCYTE 2 % (0-0); MYELOCYTE 1 % (0-0); NEUTROPHILS 72 % (42.0-75.2); PLATELET ESTIMATE NORMAL (NORMAL)
--- NOTE | 2019-10-05 08:50 | NUR ---
PT AOX4. DENIES PAIN. INCREASED EDEMA TO SARABJIT HANDS AND UPPER EXTREMITIES. LCTA. TITRATD TO 1.5L NC. NO COUGH. HRRR. NO EDEMA TO SARABJIT LE. PICC LINE TO LUE INTACT WITH EASY FLUSH AND REDRAW. TURNED Q2HR. SPONGE BATHED THIS AM.
--- NOTE | 2019-10-05 17:13 | NUR ---
requested paperwork sent to [facility] Triage nurse and received. dr and case management updated. awaiting family decision to possibly transfer. pt also undecided. pt aox4. turned every 2 hrs. occasional urinary incontinence with IV lasix otherwise continent. one liquid clear-mucous BM this shift. PICC arm circumference attributed to amena edema to upper extremities equally. no PICC redness, erythema. flushes and draws back.
--- NOTE | 2019-10-05 23:00 | NUR ---
Pt assessment completed charted, alert, oriented, 2 lit NC. Meds provided as per MAY, tolerated well. Helped settled down on bed, call light on reach. No further needs at this time.
[2019-10-06 04:40] VITALS: BP 123/48; PULSE 73; TEMP 98.2
[2019-10-06 06:29] LABS: MEAN CELL VOLUME 92 fl (80.0-100.0); MEAN CORPUSCULAR HGB CONC 33 g/dl (33.0-37.0); MEAN PLATELET VOLUME 10.4 fl (7.4-10.4); RED BLOOD COUNT 3.19 M/mm3 (4.20-5.60); REDCELL DISTRIBUTION WIDTH-CV 16.7 % (11.5-14.5)
[2019-10-06 06:32] LABS: CALCIUM 7.9 mg/dL (8.4-10.2); CREATININE, serum 0.86 (0.66-1.25); POTASSIUM 3.3 mmol/L (3.4-5.0)
[2019-10-06 07:05] LABS: HEMATOCRIT 29.3 % (42.0-52.0); HEMOGLOBIN 9.6 g/dl (13.5-18.0); MEAN CORPUSCULAR HEMOGLOBIN 30 pg (27.0-31.0)
[2019-10-06 07:09] LABS: PLATELET COUNT 210 K/mm3 (130-400)
[2019-10-06 07:22] VITALS: BP 104/44; PULSE 64; TEMP 97.6
[2019-10-06 07:37] LABS: BAND 11 % (0-10); EOSINOPHIL 1 % (0-4); LYMPHOCYTE 7 % (20.0-51.0); METAMYELOCYTE 1 % (0-0); NEUTROPHILS 75 % (42.0-75.2); PLATELET ESTIMATE NORMAL (NORMAL)
[2019-10-06 07:41] LABS: ANISOCYTOSIS 1+; MICROCYTOSIS 1+
--- NOTE | 2019-10-06 07:46 | NUR ---
Pt had an uneventful night. Slept on and off throught out the night. Morning meds provided as per MAY. Handover given to the day shift nurse.
--- NOTE | 2019-10-06 08:00 | NUR ---
Shift assessment complete at this time. Plan of care reviewed at bedside with patient. Additional time taken to address any other needs or concerns. Vitals stable at this time. Pt reports mild to moderate coccyx pain at 4/10 severity. Pt repositioned and will administer PRN tylenol per orders. Bed in low position, call light within reach, will continue to monitor.
[2019-10-06 08:43] LABS: PATHOLOGY DIFF REVIEW OK
--- NOTE | 2019-10-06 09:11 | NUR ---
Initial visit; Patient thanked Career Development Specialist for looking in on him and offering God's blessings.
[2019-10-06 11:56] VITALS: BP 115/44; PULSE 70; TEMP 98.4
--- NOTE | 2019-10-06 12:15 | NUR ---
PICC dressing not intact. with sterile technique left upper arm PICC dressing change done with insertion site cleansed with chloraprep x 1, chlorhexidine impregnated disk, stat lock, skin prep, and tegaderm applied. no signs or symptoms of IV complications noted. no concerns voiced. wrapped with gigi to protect catheter.
[2019-10-06 16:30] VITALS: BP 110/75; PULSE 64; TEMP 98.9
--- NOTE | 2019-10-06 16:45 | NUR ---
Drafter Heating And Ventilating collaborated with Hospitalist who advised patient declined transfer to [facility] and was interested in Hospice. HOLLY followed up with patient and had his DPOA, Alyssa on speaker phone. HOLLY reviewed options for Hospice including Hospice at [facility] or the [facility]. Both patient and Alyssa preferred [facility]. HOLLY faxed referral then followed up with Tye at [facility]. Tye advised she spoke with Alyssa earlier and still needs to get in touch with Dr. Romeo. Tye advised that they can for sure accept Sunday, but may not be able to do an admission tomorrow. HOLLY will continue to follow.
--- NOTE | 2019-10-06 18:42 | NUR ---
REPORT GIVEN TO ONCOMING SHIFT
[2019-10-06 22:07] VITALS: BP 112/37; PULSE 59; TEMP 98.3
--- NOTE | 2019-10-07 03:48 | NUR ---
Pt assessment completed, charted, NC 2lit. Meds provided as per MAY, tolerated well. PICC line flushed without complication. PRN pain med given, changed and helped settled on bed. Frequently checking on him because pt stated that he does not much energy to press the call light. No further needs at this time.
[2019-10-07 04:00] VITALS: BP 110/38; PULSE 40; TEMP 98.8
--- NOTE | 2019-10-07 07:51 | NUR ---
Pt had an uneventful night, slept through out the night. Handover given to the day shift nurse
--- NOTE | 2019-10-07 09:26 | NUR ---
Follow-up visit; Patient thanked Senior Linux Unix Administrator for listening, visit and offering spiritual care with God's blessings.
--- NOTE | 2019-10-07 11:00 | NUR ---
Assistant Professor Of Psychology contacted Tye with [facility]. She states that Dr. Romeo is reviewing the request to follow at the [facility]. Will continue to monitor.
[2019-10-07 12:07] LABS: MYCOPLASMA IGM ANTIBODIES Negative (Negative)
--- NOTE | 2019-10-07 15:05 | NUR ---
Lettuce Cutter contacted Vanesa with the [facility] to discuss acceptance. She reports they can take the patient on Sunday, 10/07 at 1330. SW contacted [facility] can be at this hospital at 1300 to transport. SW informed the team and the patient's daughter/DPOA-HC Alyssa. All in agreeance with the above plan. HOLLY presented the IM form to Alyssa. She understood and gave SW permission to sign on her behalf. A copy provided to the patient and original was placed in the chart. Will continue to monitor.
--- NOTE | 2019-10-07 20:00 | NUR ---
At time of assessment, patient is resting in bed. He easily arouses to voice and is alert and oriented. He complains of generalized pain but does not want pain meds. Heart sounds are normal/regular, lungs are diminished throughout. Bilat lower extremity edema with 1+ pitting is present, left hand is edematous, and bilateral upper extremities are edematous as well. Patient wears 2L O2 and shows no increased work of breathing. Condom catheter removed at this time, as it has started to leak; Bed bath and linen change complete at this time. Will address with patient if he wishes to have a new condom catheter applied. Will continue to monitor.
--- NOTE | 2019-10-08 01:48 | NUR ---
[place] catheter reapplied at this time, per patient request. 5 mg Roxanol oral administered at this time as well for generalized joint pain. Will continue to monitor.
[2019-10-08] MEDS ORDERED: IPRATROPIUM BROM3 M1 IH (09:17)
[2019-10-08] MEDS ORDERED: TYLENOL 325MG325 MG PO (09:19)
[2019-10-08] MEDS ORDERED: HALLS9.1 MG MM (09:20)
[2019-10-08] MEDS ORDERED: ISOPTO ATROPINE15 ML SL (09:20)
[2019-10-08] MEDS ORDERED: SYSTANE 0.3-0.1 EACH OP (09:20)
[2019-10-08] MEDS ORDERED: ROXANOL 20MG20 MG/ML SL (09:21)
[2019-10-08] MEDS ORDERED: ZOFRAN 4MG T4 MG/TAB PO (09:21)
[2019-10-08] MEDS ORDERED: ATIVAN 1MG T1 MG/TAB PO (09:21)
[2019-10-08] MEDS ORDERED: TRANSDERM-0.5 MG/21 TD (09:21)
--- NOTE | 2019-10-08 10:58 | NUR ---
ONE OF HIS LINES WAS HARD TO FLUSH. PT WINCED AND REPORTED PAIN WHEN I PALPATED HIS RADIAL PULSE. PT SAID THAT PAIN MEDICATION HELPED HIM. PT APPEARS SLIGHTLY DROWSY. PT ORIENTED X4. ASSESSMENT PERFORMED. NO OTHER NEEDS AT THIS TIME.
[2019-10-08 11:20] VITALS: BP 110/38; PULSE 40; TEMP 98.8
--- NOTE | 2019-10-08 12:35 | NUR ---
REPORT GIVEN TO RN AT [facility]. PT CHECKED FOR INCONTINENCE, PO MORPHINE GIVEN, PT READJUSTED IN BED AND PLACED ON L SIDE. NO OTHER NEEDS AT THIS TIME.
--- NOTE | 2019-10-08 13:26 | NUR ---
PT TAKEN OUT WITH PT BELONGINGS VIA EMS STRETCHER. NO OTHER NEEDS AT THIS TIME. PICC REMOVED, EXTERNAL CATH INTACT, PAIN MEDICATION GIVEN.
--- NOTE | 2019-10-08 14:18 | NUR ---
The patient discharged today, 10/07 to the [facility]. HOLLY faxed discharge orders. HOLLY faxed scripts to [facility]. [facility] transported at 1300. There are no additional needs at this time.
== END 2019-10-08 13:30 | disposition hospice, inpatient (51) | DRG 40 ==
LOC: MEDICAL 16:38
PROVIDERS: Family Medicine; Hospitalist; Physician Assistant; Psychiatry & Neurology Neurology; Urology; ADMIT Student in an Organized Health Care Education/Training Program
PROC: 0TJB8ZZ Inspection of Bladder, Via Natural or Artificial Opening Endoscopic (ICD-10-PCS; principal; 2019-10-01 08:30)
PROC: 07B53ZX Excision of Right Axillary Lymphatic, Percutaneous Approach, Diagnostic (ICD-10-PCS; 2019-10-02)
DX: G72.89 Other specified myopathies (principal); J69.0 Pneumonitis due to inhalation of food and vomit; J96.01 Acute respiratory failure with hypoxia; E87.1 Hypo-osmolality and hyponatremia; R59.1 Generalized enlarged lymph nodes; M19.90 Unspecified osteoarthritis, unspecified site; D64.9 Anemia, unspecified; Z51.5 Encounter for palliative care; Z66 Do not resuscitate; R33.9 Retention of urine, unspecified; H10.9 Unspecified conjunctivitis; Z85.46 Personal history of malignant neoplasm of prostate; Z20.828 Contact with and (suspected) exposure to other viral communicable diseases
CPT/HCPCS: 99231-AI; 99232-AI; 99233-AI; 99239; A9284; A9585; C1751; C1892; G0378; G0379; J0290; J0696; J1650; J1940; J2270; J2405; J2543; J3370; J7030; J7050; P9016; Q9967